=== PATIENT | female | born 1985 | race Caucasian/White ===

== ENCOUNTER 2022-05-02 08:33 | Day surgery (SDC) | payer BC ==
[2022-04-23 14:18] LABS: BASOPHILS # (AUTO) 0.1 X10'3 (0-0.2); BASOPHILS % (AUTO) 1.8 % (0-1); EOSINOPHILS # (AUTO) 0.3 X10'3 (0-0.9); EOSINOPHILS % (AUTO) 5.5 % (0-6); LYMPHOCYTES # (AUTO) 1.7 X10'3 (1.1-4.8); MEAN CORPUSCULAR HEMOGLOBIN 30.7 PG (27.0-31.0); MEAN CORPUSCULAR VOLUME 90.3 FL (78-98); MEAN PLATELET VOLUME 8.1 FL (7.4-10.4); MONOCYTES # (AUTO) 0.5 X10'3 (0-0.9); MONOCYTES % (AUTO) 8.3 % (2-12); NEUTROPHILS # (AUTO) 3.5 X10'3 (1.8-7.7); NEUTROPHILS % (AUTO) 56.4 % (42-75); PRE OP HEMATOCRIT 36.4 % (35.0-45.0); PRE OP HEMOGLOBIN 12.4 g/dL (12.0-16.0); PRE OP PLATELET COUNT 324 X10'3 (140-440); RED BLOOD COUNT 4.03 X10'6 (4.20-5.60); RED CELL DISTRIBUTION WIDTH 12.4 % (11.5-14.5)
[2022-04-23 14:23] LABS: CLARITY,URINE CLEAR (Clear); COLOR,URINE YELLOW (Yellow); GLUCOSE, URINE NEGATIVE (Neg); KETONES,URINE NEGATIVE (Neg); LEUKOCYTE ESTERASE ,URINE NEGATIVE (Neg); NITRITES, URINE NEGATIVE (Neg); OCCULT BLOOD,URINE NEGATIVE (Neg); PROTEIN,URINE NEGATIVE (Neg); UROBILINOGEN,URINE 0.2 E.U/dL (0.2-1.0)
[2022-04-23 14:30] LABS: HCG SERUM QL NEGATIVE; PRE OP PROTIME 10.3 SECONDS (9.0-12.0)
[2022-04-23 14:32] LABS: ALBUMIN 3.8 G/DL (3.4-5.0); ALBUMIN/GLOBULIN RATIO 1.1 (1.1-1.5); ALKALINE PHOSPHATASE 45 IU/L (46-116); BLOOD UREA NITROGEN 10 MG/DL (7-18); BUN/CREATININE RATIO 10.2 (6.6-38.0); CALCIUM 8.6 MG/DL (8.5-10.1); CHLORIDE 107 MMOL/L (99-107); CREATININE 0.98 MG/DL (0.40-0.90); PRE OP ALT 15 U/L (30-65); PRE OP ANION GAP 10 (8-16); PRE OP AST 14 U/L (10-37); PRE OP BILIRUB, TOTAL 0.2 MG/DL (0.0-1.0); PRE OP GLUCOSE 92 MG/DL (70-104); PRE OP POTASSIUM 3.9 MMOL/L (3.4-5.1); PRE OP SODIUM 141 MMOL/L (135-145); TOTAL CARBON DIOXIDE 24.4 MMOL/L (24-32); TOTAL PROTEIN 7.2 G/DL (6.4-8.2); eGFR 65 ML/MIN
[2022-04-23 14:39] LABS: UA COLLECTION TYPE CLN CATCH MIDSTREAM
[~2022-05-02] VITALS: Ht 167.6 cm; Wt 73.0 kg
[2022-05-02] VITALS (24 sets, daily range): BP systolic 102–119; BP diastolic 54–76
[~2022-05-02 08:33] MED LIST: ALBU8HFA PO; BUPIVAcaine 0.5% inj/PF 60 ML ONE; ETHY1TAB PO; NAPR-996 PO; OMEP40CA21 PO; ceFOXitin 2GM-NS 100mL ADDvant 100 ML IV ONE; famotidine 20mg tablet PO ONE; neomy sulf/polymyxin B sulf. GU irrigation 1ml amp IR ONE; ringers solution, lacted 1,000 ML IV SCH; vasoPRESSIN 20 units/ml inj. ONE
[2022-05-02] MEDS ORDERED: meperidine/PF 25mg/ml syringe IV PRN ×2 (10:00)
[2022-05-02] MEDS ORDERED: morphine 2 MG/ML inj. syringe IV PRN (10:00)
[2022-05-02] MEDS ORDERED: labetalol 20mg/4ml (5mg/ml) syringe IV PRN (10:00)
[2022-05-02] MEDS ORDERED: proCHLORperazine 10 MG/2 ml inj IV PRN (10:00)
[2022-05-02] MEDS ORDERED: ketorolac trometh. 30mg/ml inj. IV ONE (10:00)
[2022-05-02] MEDS ORDERED: morphine 4 MG/ML inj SYRINge IV PRN (10:00)
[2022-05-02] MEDS ORDERED: ondansetron/PF 4mg/2ml inj IV PRN ×2 (10:00→13:40)
[2022-05-02] MEDS ORDERED: hydrALAZINE 20mg/ml inj. IV PRN (10:00)
[2022-05-02] MEDS ORDERED: ringers solution, lacted 1,000 ML IV SCH ×2 (10:00→13:40)
[2022-05-02] MEDS ORDERED: sevoflurane 250ml liquid IH ONE (12:08)
[2022-05-02] MEDS ORDERED: midazolam 1 mg/ML 2ml injection ONE (12:14)
[2022-05-02] MEDS ORDERED: fentaNYL /PF 50mcg/ml 5ml ampule ONE (12:39)
[2022-05-02] MEDS ORDERED: propofol inj 20 ML IV ONE (12:44)
[2022-05-02] MEDS ORDERED: BUPIVAcaine 0.5% inj/PF 30 ml vial IJ ONE (12:44)
[2022-05-02] MEDS ORDERED: LIDOcaine 2% (20mg/ml) 5ml vial ONE (12:44)
[2022-05-02] MEDS ORDERED: rocuronium 10mg/ml inj IV ONE (12:44)
[2022-05-02] MEDS ORDERED: dexamethasone sod phosphate 4mg/ml inj. ONE (12:45)
[2022-05-02] MEDS ORDERED: ondansetron/PF 4mg/2ml inj ONE (12:45)
[2022-05-02] MEDS ORDERED: glycopyrrolate 0.2mg/ml inj ONE ×2 (12:45→13:51)
[2022-05-02] MEDS ORDERED: HYDROcodone/acetaminophen 10/325mg tab PO PRN ×2 (13:40)
[2022-05-02] MEDS ORDERED: metoclopramide 5 mg/ml inj IV PRN (13:40)
[2022-05-02] MEDS ORDERED: ketorolac trometh. 30mg/ml inj. IV PRN (13:40)
[2022-05-02] MEDS ORDERED: LORazepam 1 MG tablet PO PRN (13:40)
[2022-05-02] MEDS ORDERED: diphenhydrAMINE 50 mg/ml inj IV PRN (13:40)
[2022-05-02] MEDS ORDERED: normal saline 500ml IV soln 500 ML IV PRN (13:40)
[2022-05-02] MEDS ORDERED: temazepam 15mg capsule PO PRN (13:40)
[2022-05-02] MEDS ORDERED: LORazepam 2 mg/ml vial IV PRN (13:40)
[2022-05-02] MEDS ORDERED: magnesium hydroxide 30ml (MOM) UD suspension PO PRN (13:40)
[2022-05-02] MEDS ORDERED: meperidine/PF 25mg/ml syringe ONE (13:49)
[2022-05-02] MEDS ORDERED: acetaminophen 1,000mg/100ml IV 100 ML IV ONE (13:49)
[2022-05-02] MEDS ORDERED: neostigmine methylsulfate 1 MG/ML 10ml vial ONE (13:50)
--- NOTE | 2022-05-02 13:55 | NUR ---
Received from OR via BED, accompanied by Anesthesiologist DR KELLEY and report given by Anesthesiologist. PT IS STILL SLEEPY AND RESPONDS TO VERBAL STIMULI. PT PLACED ON BEDSIDE MONITOR AND VSS. PT RECEIVING 8L O2 TO MASK AND TOLERATING WELL, O2 SAT > 96%. PT RR IS 14-17. WILL TITRATE O2 DOWN PT TOLERATES. PT HAS 20G PIV TO LEFT WRIST WITH LR INFUSING @ 100ML/HR ORDERED. PT HAS 3 SMALL INCISION SITES AND BILAT LOWER ABD THAT ARE C/D/I, GUIDO PAD IS C/D/I. PT RESTING COMFORTABLY. WILL CONTINUE TO ASSESS. GUAJARDO CATHETER DRAINING CLEAR YELLOW URINE. Addendum: 05/02/22 at 1425 by Alexis Jara RN Amended: Links added.
[2022-05-02] MEDS: acetaminophen 1,000mg/100ml IV 100 ML IV PRN ×2 (13:57→14:11)
[2022-05-02] MEDS: meperidine/PF 25mg/ml syringe IV PRN ×3 (13:57→15:21)
--- NOTE | 2022-05-02 15:55 | NUR ---
PATIENT HAS MET ALL CRITERIA FOR TRANSFER TO THE SURGICAL FLOOR. VSS. DRESSINGS INTACT. BED LOW, CALL LIGHT PRESENT AND 2 RAILS UP. RN PRESENT TO ACCEPT CARE OF PATIENT AND REPORT HAS BEEN CALLED. ALL QUESTIONS ANSWERED TO ACCEPTING RN. Addendum: 05/02/22 at 1635 by Alexis Jara RN Amended: Links added.
--- NOTE | 2022-05-02 18:29 | NUR ---
Problems reprioritized. Patient report given, questions answered & plan of care reviewed with vincenzo lee.
[2022-05-02] MEDS ORDERED: docusate sod 100mg capsule PO SCH (20:00)
--- NOTE | 2022-05-02 20:00 | NUR ---
Pt has decided that she wanted to go home with her F/C and f/u for removal in the AM with Dr. Ontiveros. has already picked up her medication at the pharmacy. Pt walked, no nausea and pain is under control with norco. D/c instructions gone over with pt and in room. 2039 Pt taken down by w/c, driving. Addendum: 05/02/22 at 2307 by Kina Silva RN Amended: Links added.
[2022-05-03] MEDS ORDERED: enoxaparin 40mg/0.4ml syringe SQ SCH (08:00)
== END 2022-05-02 20:54 | disposition home or self-care (01) ==
LOC: PAS 08:33 → SUR 3N 16:00 → PAS 20:54
PROVIDERS: ATTEND Obstetrics & Gynecology Obstetrics
DX: N92.1 Excessive and frequent menstruation with irregular cycle (principal); N94.6 Dysmenorrhea, unspecified; Z79.899 Other long term (current) drug therapy; Z98.890 Other specified postprocedural states; Z87.891 Personal history of nicotine dependence; Z88.6 Allergy status to analgesic agent; Z91.09 Other allergy status, other than to drugs and biological substances; G89.18 Other acute postprocedural pain
CPT/HCPCS: 36415; 58550; 71046; 80053; 81003; 82948; 84703; 85025; 85610; 85730; 86885; 86900; 86901; 87081; J0131; J0694; J0780; J1100; J1885; J2175; J2250; J2270; J2405; J2704; J2710; J3010; J3490; J7030; J7120; S0020; Z7506; Z7508; Z7512; A4314; A4618; A7000; G0378